=== PATIENT | male | born 1950 | race Caucasian/White ===

== ENCOUNTER 2016-11-30 16:02 | Emergency (ER) | payer MEDICARE, OTHER ==
[~2016-11-30 16:02] MED LIST: ALEVE220 MG PO; ASAB PO; BYETTA10 SC; COQ-10200 MG OR; COREG12 PO; COREG6 PO; COZ50 PO; DEMA10T PO; DEMA20 PO; GLUCOTRO10 PO; GLUCPH PO; GLUCPH8 PO; KLOR-CON 1010 MEQ PO; LANTUS SC; LIPITOR20 PO; MOBIC7.5 PO; MULTIPLE VIT PO; MULTIVIT/MIN PO; PT. UNABLE TO RECALL; SPIRO25 PO; VICTOZA18 MG/3 ML SC; VITAMIN B PO; [UNRECOGNIZED DRUG - REMARK]
[2017-03-19] MEDS ORDERED: PRAVAC PO (12:22)
[2017-03-19] MEDS ORDERED: Z300 PO (12:22)
[2017-03-19] MEDS ORDERED: L20 PO (12:23)
[2017-03-19] MEDS ORDERED: HUMALOGPEN SC (12:27)
[2017-05-13] MEDS ORDERED: BUM2 PO (13:45)
[2017-05-13] MEDS ORDERED: ENDOCET1 TA3 PO (13:49)
[2017-05-13] MEDS ORDERED: 8 HOUR650 MG PO (13:49)
[2017-05-13] MEDS ORDERED: MELATONIN5 M1 PO (13:50)
[2017-05-15] MEDS ORDERED: PLAVIX PO (13:50)
== END 2016-11-30 16:05 | disposition home or self-care (01) ==
LOC: ER 16:02
DX: M79.621 Pain in right upper arm (principal); I10 Essential (primary) hypertension; Z95.0 Presence of cardiac pacemaker; E11.9 Type 2 diabetes mellitus without complications; Z88.0 Allergy status to penicillin; Z79.84 Long term (current) use of oral hypoglycemic drugs; Z79.82 Long term (current) use of aspirin; Z79.4 Long term (current) use of insulin; Z79.899 Other long term (current) drug therapy
CPT/HCPCS: 93971; 99284